=== PATIENT | female | born 1960 | race Caucasian/White ===

== ENCOUNTER 2022-02-02 15:10 | Observation (INO) | payer OTHER, MEDICAID, SELFPAY ==
[2022-02-02] VITALS (25 sets, daily range): BP systolic 113–180; BP diastolic 79–109; PULSE 81–143; RESP 10–23; TEMP 36.3–36.8; O2SAT 91–96; BMI 25.5
--- NOTE | 2022-02-02 15:34 | DI.RAD.S_ITS ---
PROCEDURE: XR CHEST 1V INDICATIONS: chest pain TECHNIQUE: One view of the chest was acquired. COMPARISON: [facility], , CHEST 1 VIEW, 10/31/2016, 17:27. FINDINGS: Surgical changes and devices: None. Lungs and pleura: There is mild pulmonary vascular congestion. No pleural effusions or pneumothorax. Mediastinum: Mediastinal contours appear normal. Heart size is enlarged. Bones and chest wall: No suspicious bony lesions. Overlying soft tissues appear unremarkable. IMPRESSION: Cardiomegaly and mild congestion. No focal infiltrate, pleural effusion or pneumothorax. Dictated by: Jordan Denis M.D. on 02/02/2022 at 16:35 Approved by: Jordan Denis M.D. on 02/02/2022 at 16:35
--- NOTE | 2022-02-02 15:36 | ED_ITS ---
HPI - Arrhythmia/Palpitations General Chief Complaint: Arrhythmia/Palpitations Stated Complaint: Sent from Dr. Chavez Time Seen by Provider: 02/02/22 15:34 History of Present Illness HPI narrative: 61-year-old female daily smoker with history of hypertension, hyperlipidemia and GERD presents at the request of her primary care provider for evaluation newly diagnosed AFib with rapid ventricular response. She had presented to her PCP earlier today because of a few days of increasing shortness of breath, fatigue and chest pain. She states it started 3 days ago and has persistent. She denies obvious provocation, palliation or radiation of her chest discomfort. She states minimal exertion makes her feel short breath. She is had no fever or chills. She denies any change in medications or diet. She denies recent travel, history of blood clot or known cancer. She is had no nausea, vomiting or diarrhea. She denies any history of atrial fibrillation. She had an EKG at the primary care office noting rapid AFib and was sent here for evaluation. Related Data Home Medications Medication Instructions Recorded Confirmed hydrochlorothiazide 25 mg tablet 25 mg PO QDAY ##0 11/23/09 02/02/22 amlodipine 5 mg tablet (Norvasc) 5 mg PO QDAY #0 tabs 01/14/16 02/02/22 aspirin 81 mg tablet,delayed 81 mg PO QDAY ##0 01/14/16 02/02/22 release duloxetine 60 mg capsule,delayed 60 mg PO BID ##0 01/14/16 02/02/22 release fenofibrate nanocrystallized 145 145 mg PO QDAY ##0 01/14/16 02/02/22 mg tablet (Tricor) gabapentin 300 mg capsule 300 mg PO TID ##0 01/14/16 02/02/22 (Neurontin) lorazepam 1 mg tablet (Ativan) PRN PRN ##0 01/14/16 02/02/22 zolpidem 5 mg tablet 5 mg PO HSP PRN ##0 01/14/16 02/02/22 albuterol sulfate 90 mcg/actuation 2 puff inhalation Q4-6H PRN 07/28/21 02/02/22 aerosol inhaler ascorbate calcium (vitamin C) 500 500 mg PO DAILY 07/28/21 02/02/22 mg tablet bupropion HCl 150 mg tablet,12 hr 150 mg PO BID 07/28/21 02/02/22 sustained-release calcium 600 mg capsule 600 mg PO BID 07/28/21 02/02/22 cholecalciferol (vitamin D3) 50 50 mcg PO DAILY 07/28/21 02/02/22 mcg (2,000 unit) capsule estradiol 2 mg tablet (Estrace) 1 mg PO QDAY #0 tabs 07/28/21 02/02/22 Previous Rx's Medication Instructions Recorded meloxicam 7.5 mg tablet 15 mg PO DAILY #180 tabs 09/08/21 omeprazole 20 mg capsule,delayed 20 mg PO DAILY #90 caps 10/29/21 release omega-3 acid ethyl esters 1 gram 2 cap PO BID #120 caps 11/08/21 capsule (Lovaza) hydrocodone 7.5 mg-acetaminophen 2 tab PO Q8H PRN pain #180 tabs 02/02/22 325 mg tablet hydrocodone 7.5 mg-acetaminophen 2 tab PO Q8H PRN pain #180 tabs 02/02/22 325 mg tablet hydrocodone 7.5 mg-acetaminophen 2 tab PO Q8H PRN pain #180 tabs 02/02/22 325 mg tablet Allergies Allergy/AdvReac Type Severity Reaction Status Date / Time atorvastatin [From LIPITOR] Allergy Unknown ACHES Verified 02/02/22 12:39 rosuvastatin [From CRESTOR] Allergy Unknown MUSCLE Verified 02/02/22 12:39 ACHES codeine [CODEINE] AdvReac Unknown Nausea Verified 02/02/22 12:39 Review of Systems Review of Systems Narrative: GENERAL: See HPI HEENT: Denies sinus pain, ear pain, sore throat, difficulty swallowing, dizziness. RESPIRATORY: See HPI CARDIOVASCULAR: See HPI GASTROINTESTINAL: Denies nausea, vomiting, abdominal pain, diarrhea, consti pation, melena. : Denies dysuria, frequency, incontinence, hematuria, urinary retention. MUSCULOSKELETAL: denies weakness, joint pain, or bony pain SKIN: Denies rash, skin lesions, or other NEUROLOGIC: Denies weakness, headache, numbness, change in speech, confusion, seizures, incoordination. PSYCHIATRIC: No concerning psychosocial issues. 12 point review of systems is negative except for those stated above Patient History Medical History Atrial fibrillation with rapid ventricular response BPPV (benign paroxysmal positional vertigo) Chest pain Chronic abdominal pain Chronic, continuous use of opioids Depression, recurrent Essential hypertension GERD without esophagitis Hypertriglyceridemia Venous (peripheral) insufficiency Social History marital status: details: ([facility]) 07/2020, grown children Smoking Status: Current every day smoker Smoking Status: Current every day smoker Exam Narrative Exam Narrative: GENERAL: [61] year old patient appears stated age. Well-developed patient, in mild distress. HEAD: Atraumatic. Normocephalic. EYES: Pupils equal round and reactive. Extraocular motions intact. No scleral icterus. No injection or drainage. ENT: Nose without bleeding, purulent drainage. Throat without erythema, tonsillar hypertrophy or exudate. Airway patent. NECK: Trachea midline. Non tender CARDIOVASCULAR: Rapid and irregular rhythm without murmurs, gallops, or rubs. RESPIRATORY: No significant obvious work of breathing, faint crackles in bilateral bases GASTROINTESTINAL: Abdomen soft, non-tender, nondistended. EXTREMITIES: No edema or joint tenderness. BACK: Nontender without deformity or crepitance. No flank tenderness. NEURO: AOx3. SKIN: No rash or erythema of visible areas Initial Vital Signs Initial Vital Signs: Vital Signs Temperature 98.2 F 02/02/22 15:29 Pulse Rate 143 H 02/02/22 15:29 Respiratory Rate 22 02/02/22 15:29 Blood Pressure 140/109 H 02/02/22 15:29 Pulse Oximetry 94 02/02/22 15:29 Oxygen Delivery Method 02/02/22 15:29 Course Orders Ordered: ED Orders 02/02/22 15:34 XR chest 1V Stat EKG-12 Lead Stat 02/02/22 15:37 Complete Blood Count AUTO DIFF Stat Comprehensive Metabolic Panel Stat D Dimer Stat Lipase Stat MAG [Magnesium] Stat NT-proBNP (BNP-Adult 18+) Stat Prothrombin Time INR Stat TSH w/ Reflex to FT4 Stat Troponin & CK Cardiac Panel Stat 02/02/22 15:57 COVID19 -Nasal RAPID/Pre-Proc Stat DILTIAZEM (Diltiazem 125 Mg/125 Ml-D5w) 125 mg in 125 mls @ 5 mls/hr IV TITRATE TANNER; Protocol Last Titration: 02/02/22 16:08 Dose: 7.5 mg/hr, 7.5 mls/hr Documented By: Admin: 02/02/22 15:51 Dose: 5 mg/hr, 5 mls/hr Documented By: MIGUEL Sodium Chloride (Normal Saline 0.9%) 1,000 mls @ 150 mls/hr IV CONT TANNER Last Admin: 02/02/22 15:48 Dose: 150 mls/hr Documented By: MIGUEL Discontinued Medications Apixaban (Apixaban 5 Mg Tablet) 5 mg PO NOW ONE Stop: 02/02/22 16:53 Diltiazem HCl (Diltiazem 5 Mg/Ml Sdv) 10 mg IV NOW ONE Stop: 02/02/22 15:35 Last Admin: 02/02/22 15:48 Dose: 10 mg Documented By: MIGUEL Furosemide (Furosemide 40 Mg/4 Ml Vial) 40 mg IV NOW ONE Stop: 02/02/22 16:22 Last Admin: 02/02/22 16:49 Dose: 40 mg Metoprolol Tartrate (Metoprolol Ir 25 Mg Tablet) 25 mg PO NOW ONE Stop: 02/02/22 16:53 Vital Signs Vital signs: Vital Signs - 8 hr 02/02/22 15:29 02/02/22 15:48 02/02/22 15:37 Temperature 98.2 F Pulse Rate 143 H 130 H 139 H Respiratory Rate 22 Blood Pressure 140/109 H Pulse Oximetry 94 95 Oxygen Delivery Method Room Air 02/02/22 15:45 02/02/22 15:51 02/02/22 15:51 Temperature Pulse Rate 138 H 133 H Respiratory Rate 10 L 13 Blood Pressure 180/98 H Pulse Oximetry 93 91 Oxygen Delivery Method 02/02/22 16:00 02/02/22 16:00 02/02/22 16:15 Temperature Pulse Rate 136 H 122 H Respiratory Rate 18 18 Blood Pressure 135/94 H Pulse Oximetry 91 92 Oxygen Delivery Method 02/02/22 16:15 02/02/22 16:30 02/02/22 16:30 Temperature Pulse Rate 113 H Respiratory Rate 16 Blood Pressure 134/90 130/88 Pulse Oximetry 92 Oxygen Delivery Method 02/02/22 16:45 02/02/22 16:45 Temperature Pulse Rate 119 H Respiratory Rate 16 Blood Pressure 133/87 Pulse Oximetry 92 Oxygen Delivery Method Room Air MDM - Arrhythmia/Palpitations Lab Data Result diagrams: 02/02/22 15:37 02/02/22 15:37 Labs: Lab Results 02/02/22 02/02/22 02/02/22 Range/Units 15:37 15:37 15:37 WBC 6.3 (4.5-11.0) X10^3/uL RBC 5.67 H (4.0-5.2) X10^6/uL Hgb 17.9 H (12.0-16.0) g/dL Hct 52.9 H (36-46) % MCV 93.3 (80-100) fL MCH 31.5 (26-34) PG MCHC 33.8 (30-36) % RDW 16.0 H (11.6-14.8) % Plt Count 168 (150-400) X10^3/uL Neut % (Auto) 60.6 (50-75) % Lymph % (Auto) 29.6 (25-40) % Sullivan % (Auto) 6.3 (3-14) % Eos % (Auto) 3.1 (2-4) % Baso % (Auto) 0.4 (0-2) % Neut # (Auto) 3800 (1725-4228) /uL Lymph # (Auto) 1900 (8392-7909) /uL Sullivan # (Auto) 400 (0-900) /uL Eos # (Auto) 200 (0-450) /uL Baso # (Auto) 0 (0-100) /uL PT 13.3 H (10.1-12.7) SECONDS INR 1.2 (0.9-1.3) D-Dimer 473 (<500) ng/ml Sodium 140 (137-145) mmol/L Potassium 3.6 (3.4-5.1) mmol/L Chloride 102 (98-107) mmol/L Carbon Dioxide 25 (22-32) mmol/L BUN 33 H (7-17) mg/dL Creatinine 1.05 H (0.52-1.04) mg/dL Estimated GFR > 60 (>60) mL/min BUN/Creatinine Ratio 31.4 H (6-22) Glucose 96 (80-110) mg/dL Calcium 9.8 (8.4-10.2) mg/dL Magnesium 1.7 (1.6-2.3) mg/dL Total Bilirubin 0.9 (0.2-1.3) mg/dL AST 30 (14-36) IU/L ALT 24 (<35) IU/L Alkaline Phosphatase 62 (38-126) U/L Total Creatine Kinase 41 (30-135) U/L CK-MB (CK-2) TNP CK-MB (CK-2) Rel Index TNP Troponin I < 0.012 (0.01-0.034) ng/mL NT-Pro-B Natriuret Pep 2790 H (<125) pg/mL Total Protein 8.5 H (6.3-8.2) g/dL Albumin 4.3 (3.5-5.0) g/dL Globulin 4.2 H (1.7-4.1) g/dL Albumin/Globulin Ratio 1.0 (1.0-2.8) Lipase 62 (23-300) U/L Imaging Data Chest x-ray: Radiologist's Impresson: Sun Appiah??61??F??1960 ? Allergy/Adv: atorvastatin, rosuvastatin, codeine (More??) Close EKG Rpt. 02/02/22 Chest X-Ray (Signed) Jordan Denis - 02/02/22 Launch?[place] [address] XRay Report Signed Patient: Sun Appiah MR#: [id number] : 1960 Acct:[id number] Age/Sex: 61 / F Date of Service: 02/02/22 Loc: ED Accession Number: [id number] ?? Procedure: XR chest 1V Ordering Provider: Enmanuel Wilcox D.O. PROCEDURE:? XR CHEST 1V ? INDICATIONS:? chest pain ? TECHNIQUE:? One view of the chest was acquired.? ? COMPARISON:? [facility], CHEST 1 VIEW, 10/31/2016, 17:27. ? FINDINGS:? ? Surgical changes and devices:? None.? ? Lungs and pleura:? There is mild pulmonary vascular congestion.? No pleural effusions or pneumothorax.? ? Mediastinum:? Mediastinal contours appear normal.? Heart size is enlarged.? ? Bones and chest wall:? No suspicious bony lesions.? Overlying soft tissues appear unremarkable.? ? IMPRESSION:? Cardiomegaly and mild congestion.? No focal infiltrate, pleural effusion or pneumothorax. ? ? Dictated by: Jordan Denis M.D. on 02/02/2022 at 16:35 ? ? Approved by: Jordan Denis M.D. on 02/02/2022 at 16:35 ? MDM Narrative Medical decision making narrative: Patient did have some improvement after the push of Cardizem, drip started at 5 and then slowly increased, she is responding and heart rate is now 105-110. She does have some crackles in her bases and elevated BNP as well as chest x-ray suggesting some pulmonary edema, she has been given Lasix 40 mg IV. Discharge Plan Departure Patient Disposition: Admitted As Inpatient Clinical Impression: Atrial fibrillation with rapid ventricular response Admit Date/Time: 02/02/22 16:52
[2022-02-02] MEDS: SODIUM CHLORIDE 0.9% 1,000 ML 150 ML IV (15:48)
[2022-02-02] MEDS: dilTIAZem 5 MG/ML SDV 10 MG IV (15:48)
[2022-02-02] MEDS: DILTIAZEM 125 MG/125 ML PIGGYBACK IV ×2 (15:51→18:17)
[2022-02-02 15:53] LABS: Add Manual Diff / Slide Review NO; Basophils Absolute Auto 0 /uL (0-100); Basophils Percent Auto 0.4 % (0-2); Eosinophils Absolute Auto 200 /uL (0-450); Eosinophils Percent Auto 3.1 % (2-4); Hematocrit 52.9 % (36-46); Hemoglobin 17.9 g/dL (12.0-16.0); Lymphocytes Absolute Auto 1900 /uL (1100-4500); Lymphocytes Percent Auto 29.6 % (25-40); Mean Corpuscular HGB Conc 33.8 % (30-36); Mean Corpuscular Hemoglobin 31.5 PG (26-34); Mean Corpuscular Volume 93.3 fL (80-100); Monocytes Absolute Auto 400 /uL (0-900); Monocytes Percent Auto 6.3 % (3-14); Neutrophils Absolute Auto 3800 /uL (1500-7000); Neutrophils Percent Auto 60.6 % (50-75); Platelet Count 168 X10^3/uL (150-400); Red Blood Cell Count 5.67 X10^6/uL (4.0-5.2); White Blood Cell Count 6.3 X10^3/uL (4.5-11.0)
[2022-02-02 15:59] LABS: INR 1.2 (0.9-1.3); Prothrombin Time 13.3 SECONDS (10.1-12.7)
[2022-02-02 16:01] LABS: D Dimer 473 ng/ml (<500)
[2022-02-02 16:05] LABS: Alanine Aminotransferase 24 IU/L (<35); Albumin 4.3 g/dL (3.5-5.0); Alkaline Phosphatase 62 U/L (38-126); Aspartate Aminotransferase 30 IU/L (14-36); BUN Creatinine Ratio 31.4 (6-22); Bilirubin Total 0.9 mg/dL (0.2-1.3); Blood Urea Nitrogen 33 mg/dL (7-17); Calcium 9.8 mg/dL (8.4-10.2); Carbon Dioxide 25 mmol/L (22-32); Chloride 102 mmol/L (98-107); Creatine Kinase 41 U/L (30-135); Estimated Glomerular Filt Rate > 60 mL/min (>60); Globulin 4.2 g/dL (1.7-4.1); Glucose 96 mg/dL (80-110); HEMOLYSIS < 15 (0-50); Lipase 62 U/L (23-300); Magnesium 1.7 mg/dL (1.6-2.3); Potassium 3.6 mmol/L (3.4-5.1); Sodium 140 mmol/L (137-145); Total Protein 8.5 g/dL (6.3-8.2)
[2022-02-02 16:17] LABS: NT-proBNP (BNP-Adult 18+) 2790 pg/mL (<125); Troponin I < 0.012 ng/mL (0.01-0.034)
[2022-02-02] MEDS: FUROSEMIDE 40 MG/4 ML VIAL IV (16:49)
[2022-02-02 16:54] LABS: COVID19 -Nasal RAPID Negative (Negative)
[2022-02-02 16:56] LABS: TSH w/ Reflex to FT4 1.73 uIU/mL (0.47-4.68)
[2022-02-02] MEDS: METOPROLOL IR 25 MG TABLET PO (16:57)
[2022-02-02] MEDS: APIXABAN 5 MG TABLET PO ×2 (16:57→20:55)
--- NOTE | 2022-02-02 18:03 | DI.ECHO.S_ITS ---
[facility]---------+ [facility] +---------+ : : [address] : : : : [id number] : : : : Phone: [phone]+ Echocardiogram Report + + :Name: KEYLA PFEIFFER Study Date: 02/03/2022 Height: 63 in : :[facility] ReadingLocation: Weight: 149 lb : : Gender: Female BSA: 1.7 m2 : :: 1960 Age: 61 yrs BP: 133/91 mmHg: :Reason For Study: ATRIAL FIBRILLATION : :Ordering Physician: THIEN, : :AISLINN KATE Performed By: Marichuy Garcia : :Referring: AISLINN NEUMANN : + + Interpretation Summary The patient was in atrial fibrillation with heart rates between 77-110 bpm during the exam. Left ventricular ejection fraction is estimated to be 35 +/- 5%. Accurate LVEF quantificantion is limited by abnormal rate and rhythm. Right ventricular systolic function is at the lower limits of normal. The right ventricular systolic pressure is estimated to be at least 40 mmHg based on an estimated right atrial pressure of 15 mm Hg. The left atrium is severely dilated. The right atrium is severely dilated. There is moderate mitral regurgitation. There is moderate tricuspid regurgitation. There is moderate aortic regurgitation. Procedure: A two-dimensional transthoracic echocardiogram with color flow and Doppler was performed. The study quality was technically adequate. There is no prior echocardiogram noted for this patient. The patient was in atrial fibrillation with heart rates between 77-110 bpm during the exam. Left Ventricle: The left ventricle is normal in size. There is moderate concentric left ventricular hypertrophy. Left ventricular ejection fraction is estimated to be 35 +/- 5%. Accurate LVEF quantificantion is limited by abnormal rate and rhythm. Diastolic function could not be accurately assessed due to atrial fibrillation. Right Ventricle: The right ventricle is normal size. Right ventricular systolic function is at the lower limits of normal. Atria: The left atrium is severely dilated. The right atrium is severely dilated. There is no Doppler evidence for an interatrial shunt. Mitral Valve: There is moderate mitral annular calcification. The mitral valve leaflets are mildly calcified. The mitral valve mean gradient is 3.8 mmHg. There is moderate mitral regurgitation. Aortic Valve: The aortic valve is trileaflet. There is no aortic valve stenosis. There is moderate aortic regurgitation. Tricuspid Valve: The tricuspid valve leaflets are thin and pliable. There is moderate tricuspid regurgitation. The right ventricular systolic pressure is estimated to be at least 40 mmHg based on an estimated right atrial pressure of 15 mm Hg. Pulmonic Valve: The pulmonic valve leaflets are thin and pliable; valve motion is normal. There is trace pulmonic regurgitation. Great Vessels: The aortic root is normal size. The ascending aorta is mildly enlarged. The IVC is dilated (diameter is greater than 2.1 cm) and it collapses less than 50% with a sniff. This suggests a high right atrial pressure of 15 mm Hg. Pericardium/ Pleura There is no pericardial effusion. There is no pleural effusion. MMode/2D Measurements & Calculations LVIDd: 4.1 cm LVOT diam: 2.0 cm LVIDs: 3.1 cm Ao root diam: 3.7 cm FS: 24.8 % asc Aorta Diam: 3.9 cm IVSd: 1.4 cm Ao Arch Diam (Prox Trans): 2.6 cm LVPWd: 1.4 cm LV gillette. diameter/BSA (cm/m^2): 2.4 LV sys. diameter/BSA (cm/m^2): 1.8 LA A2 area: 43.3 cm2 RA long axis: 7.6 cm LA A4 area: 31.8 cm2 RA area: 27.9 cm2 LA length (vol): 7.6 cm RA vol: 87.3 ml LA vol: 153.2 ml RA : 51.2 ml/m2 LA vol index: 89.8 ml/m2 IVC diam: 2.0 cm RVD1 (basal): 3.2 cm RVD2 (mid): 2.2 cm TAPSE: 1.5 cm Doppler Measurements & Calculations Ao V2 max: 123.1 cm/sec LVOT Max Ruel: 73.9 cm/sec Ao V2 mean: 87.3 cm/sec LV V1 max P.2 mmHg Ao max P.1 mmHg LV V1 VTI: 12.2 cm Ao mean P.4 mmHg IGGY(I,D): 1.9 cm2 Ao V2 VTI: 19.3 cm IGGY(V,D): 1.8 cm2 sev ratio: 0.63 IGGY indexed to BSA (cm^2/m^2): 1.1 MV E max ruel: 149.5 cm/sec TR max ruel: 247.9 cm/sec MV A max ruel: 3.0 cm/sec TR max P.6 mmHg MV E/A: 49.4 PA V2 max: 65.9 cm/sec Med Peak E' Ruel: 5.9 cm/sec PA V2 mean: 45.1 cm/sec E/E' med: 25.2 PA mean P.92 mmHg Lat Peak E' Ruel: 6.9 cm/sec E/E' lat: 21.7 E/e' average: 23.5 MV dec time: 0.19 sec MVA(VTI): 1.3 cm2 MV V2 mean: 86.8 cm/sec SV(LVOT): 37.2 ml MV mean P.9 mmHg MV V2 VTI: 29.4 cm Reading Physician:ROMEL
--- NOTE | 2022-02-02 18:27 | P.HP_ITS ---
History of Present Illness History of Present Illness Date Patient Seen: 02/02/22 Time Patient Seen: 18:27 Chief complaint: Sent from Dr. Chavez Narrative: This is a 61-year-old female with a past medical history of hypertension, GERD, chronic abdominal pain, tobacco use who presented to her PCP appointment for follow up but was sent to the ER for afib with RVR. She complains of chronic bilateral lateral skeletal wall pain, underneath her breasts that radiates to her back. It is worse with touch. She states this has been present for quite some time. She has noticed intermittent palpitations over the past few months, as well as intermittent leg swelling and shortness of breath. She has noticed occasionally she gets short of breath when walking at her home for a few hundred feet, which improves with rest, but is intermittent and has not changed in frequency recently. She denies recent fever, chills, nausea, vomiting, diarrhea, constipation, rash, dysuria or urinary frequency. In the emergency room, patient was noted to be in afib with RVR with a rate in the 140s. The remainder of her vital signs were unremarkable. She responded to IV diltiazem and was placed on an infusion. Chest x-ray showed mild cardiomegaly and mild vascular congestion consistent with volume overload with no focal consolidations, as interpreted by me. Laboratory evaluation revealed an elevated hemoglobin of 17.9, creatinine of 1.05 increased from her usual baseline of 0.7, proBNP of 2790, with a negative troponin, TSH was within normal limits and COVID-19 testing was negative. Patient was sent to the ICU on a diltiazem infusion. I asked the ER provider to give a single dose of 25 mg of immediate release metoprolol, which will help with titration off of her dilt iazem infusion. She was also given a dose of Lasix. Patient History Medical History Atrial fibrillation with rapid ventricular response BPPV (benign paroxysmal positional vertigo) Chest pain Chronic abdominal pain Chronic, continuous use of opioids Depression, recurrent Essential hypertension GERD without esophagitis Hypertriglyceridemia Venous (peripheral) insufficiency Surgical History S/P hernia surgery Family & Social History Family History Father Diabetes mellitus CAD (coronary artery disease) Mother Cancer Safety & Behavioral: Feels Safe in Current Yes Environment Been Physically Hurt or No Threatened By a Person Tobacco & Substance use: Smoking Status Current every day smoker Comment: EtOH: occasional Illicit substances: Denies Meds Home Medications and Allergies Home Medications Medication Instructions Recorded Confirmed Type hydrochlorothiazide 25 mg tablet 25 mg PO QDAY ##0 11/23/09 02/02/22 History amlodipine 5 mg tablet (Norvasc) 5 mg PO QDAY #0 tabs 01/14/16 02/02/22 History aspirin 81 mg tablet,delayed 81 mg PO QDAY ##0 01/14/16 02/02/22 History release duloxetine 60 mg capsule,delayed 60 mg PO BID ##0 01/14/16 02/02/22 History release fenofibrate nanocrystallized 145 145 mg PO QDAY ##0 01/14/16 02/02/22 History mg tablet (Tricor) gabapentin 300 mg capsule 300 mg PO TID ##0 01/14/16 02/02/22 History (Neurontin) lorazepam 1 mg tablet (Ativan) PRN PRN ##0 01/14/16 02/02/22 History zolpidem 5 mg tablet 5 mg PO HSP PRN ##0 01/14/16 02/02/22 History albuterol sulfate 90 mcg/actuation 2 puff inhalation Q4-6H PRN 07/28/21 02/02/22 History aerosol inhaler Shortness Of Breath Or Wheezing ascorbate calcium (vitamin C) 500 500 mg PO DAILY 07/28/21 02/02/22 History mg tablet bupropion HCl 150 mg tablet,12 hr 150 mg PO BID 07/28/21 02/02/22 History sustained-release calcium 600 mg capsule 600 mg PO BID 07/28/21 02/02/22 History cholecalciferol (vitamin D3) 50 50 mcg PO DAILY 07/28/21 02/02/22 History mcg (2,000 unit) capsule estradiol 2 mg tablet (Estrace) 1 mg PO QDAY #0 tabs 07/28/21 02/02/22 History meloxicam 7.5 mg tablet 15 mg PO DAILY #180 tabs 09/08/21 02/02/22 Rx omeprazole 20 mg capsule,delayed 20 mg PO DAILY #90 caps 10/29/21 02/02/22 Rx release omega-3 acid ethyl esters 1 gram 2 cap PO BID #120 caps 11/08/21 02/02/22 Rx capsule (Lovaza) hydrocodone 7.5 mg-acetaminophen 2 tab PO Q8H PRN pain #180 tabs 02/02/22 02/02/22 Rx 325 mg tablet Allergies Allergy/AdvReac Type Severity Reaction Status Date / Time atorvastatin [From LIPITOR] Allergy Unknown ACHES Verified 02/02/22 12:39 rosuvastatin [From CRESTOR] Allergy Unknown MUSCLE Verified 02/02/22 12:39 ACHES codeine [CODEINE] AdvReac Unknown Nausea Verified 02/02/22 12:39 Review of Systems Review of Systems Narrative: All other systems reviewed with the patient and are negative unless otherwise stated. Exam Vital Signs (past 8 hours): - 02/02/22 15:29 02/02/22 15:48 02/02/22 15:37 Temperature 98.2 F Pulse Rate 143 H 130 H 139 H Respiratory Rate 22 Blood Pressure 140/109 H Pulse Oximetry 94 95 Oxygen Delivery Method Room Air 02/02/22 15:45 02/02/22 15:51 02/02/22 15:51 Temperature Pulse Rate 138 H 133 H Respiratory Rate 10 L 13 Blood Pressure 180/98 H Pulse Oximetry 93 91 Oxygen Delivery Method 02/02/22 16:00 02/02/22 16:00 02/02/22 16:15 Temperature Pulse Rate 136 H 122 H Respiratory Rate 18 18 Blood Pressure 135/94 H Pulse Oximetry 91 92 Oxygen Delivery Method 02/02/22 16:15 02/02/22 16:30 02/02/22 16:30 Temperature Pulse Rate 113 H Respiratory Rate 16 Blood Pressure 134/90 130/88 Pulse Oximetry 92 Oxygen Delivery Method 02/02/22 16:45 02/02/22 16:45 02/02/22 17:00 Temperature Pulse Rate 119 H Respiratory Rate 16 Blood Pressure 133/87 129/84 Pulse Oximetry 92 Oxygen Delivery Method Room Air 02/02/22 17:00 02/02/22 17:15 02/02/22 17:15 Temperature Pulse Rate 114 H 107 H Respiratory Rate 16 16 Blood Pressure 127/79 Pulse Oximetry 91 91 Oxygen Delivery Method 02/02/22 17:30 02/02/22 17:30 02/02/22 16:54 Temperature Pulse Rate 118 H Respiratory Rate 23 Blood Pressure 113/86 Pulse Oximetry 91 Oxygen Delivery Method Room Air Oxygen Delivery Method Room Air Narrative Exam Narrative: General:? Patient is well developed and well nourished, in no distress at this time. HEENT:? Normocephalic, atraumatic, extraocular muscles intact, oral pharynx is clear and mucous membranes are moist. Neck: supple and symmetric, trachea is midline, no cervical adenopathy. Negative for JVD Chest:? Normal AP diameter and contour without kyphoscoliosis, no tachypnea, equal chest rise bilaterally. Lungs:? CTA b/l no wheezing rhonchi or rales. Cardio:? Irregularly irregular rhythm with a normal rate, no murmurs, rubs, or gallops. Abdomen: S NT ND. No CVA tenderness. Musculoskeletal:? Muscle strength and tone are equal within normal limits, no deformity. Extremities: No edema or joint effusions. No cyanosis or clubbing. Skin:? Pale,? Warm to touch,dry and intact without rashes, ulcerations or petechiae.? Neuro:? Alert and orientated x3,? sensation to touch intact in all extremities, no gross deficits noted of cranial nerves. Psych:? Patient has a well-kept appearance, appropriate affect, mental status attitude thought context and judgment are appropriate for age. Objective ECG Impression: Atrial fibrillation with rapid ventricular response, with an incomplete right bundle tony block as interpreted by me. Imaging Chest x-ray: My impression: cardiomegaly with slight vascular congestion. Radiologist's impression: PROCEDURE:? XR CHEST 1V ? INDICATIONS:? chest pain ? TECHNIQUE:? One view of the chest was acquired.? ? COMPARISON:? [facility], , CHEST 1 VIEW, 10/31/2016, 17:27. ? FINDINGS:? ? Surgical changes and devices:? None.? ? Lungs and pleura:? There is mild pulmonary vascular congestion.? No pleural effusions or pneumothorax.? ? Mediastinum:? Mediastinal contours appear normal.? Heart size is enlarged.? ? Bones and chest wall:? No suspicious bony lesions.? Overlying soft tissues appear unremarkable.? ? IMPRESSION:? Cardiomegaly and mild congestion.? No focal infiltrate, pleural effusion or pneumothorax. Labs Result Diagrams: 02/02/22 15:37 02/02/22 15:37 Labs: Laboratory Results - last 24 hr 02/02/22 02/02/22 02/02/22 15:37 15:37 15:37 WBC 6.3 RBC 5.67 H Hgb 17.9 H Hct 52.9 H MCV 93.3 MCH 31.5 MCHC 33.8 RDW 16.0 H Plt Count 168 Neut % (Auto) 60.6 Lymph % (Auto) 29.6 [place] % (Auto) 6.3 Eos % (Auto) 3.1 Baso % (Auto) 0.4 Neut # (Auto) 3800 Lymph # (Auto) 1900 [place] # (Auto) 400 Eos # (Auto) 200 Baso # (Auto) 0 PT 13.3 H INR 1.2 D-Dimer 473 Sodium 140 Potassium 3.6 Chloride 102 Carbon Dioxide 25 BUN 33 H Creatinine 1.05 H Estimated GFR > 60 BUN/Creatinine Ratio 31.4 H Glucose 96 Calcium 9.8 Magnesium 1.7 Total Bilirubin 0.9 AST 30 ALT 24 Alkaline Phosphatase 62 Total Creatine Kinase 41 CK-MB (CK-2) TNP CK-MB (CK-2) Rel Index TNP Troponin I < 0.012 NT-Pro-B Natriuret Pep 2790 H Total Protein 8.5 H Albumin 4.3 Globulin 4.2 H Albumin/Globulin Ratio 1.0 Lipase 62 TSH SARS-CoV-2 (PCR) 02/02/22 02/02/22 15:37 15:57 WBC RBC Hgb Hct MCV MCH MCHC RDW Plt Count Neut % (Auto) Lymph % (Auto) [place] % (Auto) Eos % (Auto) Baso % (Auto) Neut # (Auto) Lymph # (Auto) [place] # (Auto) Eos # (Auto) Baso # (Auto) PT INR D-Dimer Sodium Potassium Chloride Carbon Dioxide BUN Creatinine Estimated GFR BUN/Creatinine Ratio Glucose Calcium Magnesium Total Bilirubin AST ALT Alkaline Phosphatase Total Creatine Kinase CK-MB (CK-2) CK-MB (CK-2) Rel Index Troponin I NT-Pro-B Natriuret Pep Total Protein Albumin Globulin Albumin/Globulin Ratio Lipase TSH 1.73 SARS-CoV-2 (PCR) Negative Assessment & Plan Assessment & Plan narrative: 1. Atrial fibrillation with rapid ventricular response, new diagnosis - try to wean from diltiazem infusion. - r/o ACS with 8 hour troponin, initial level was undetectable. - check echocardiogram - start metoprolol 25 mg BID for rate control, adjust as needed. - start apixaban for stroke risk reduction - TSH within normal limits. 2. Acute heart failure, unknown type - suspect in the setting of afib with RVR, but has cardiomegaly and congestion on CXR with elevated proBNP. - no hypoxia and mild shortness of breath currently, though improved with 40 mg IV lasix in the ER. Will continue with oral lasix 40 mg daily tomorrow. - TTE as noted above. 3. Tobacco use - counseled on cessation and how her smoking is contributing to her current medical conditions. She has no interest in cessation at this time but would like a nicotine patch during admission. 4. JUANITA - likely in setting of afib with RVR. Continue to follow. 5. Polycythemia - Hg of 17.9 on admission. Likely in setting of tobacco use and relative hypoxia. Would recommend additional outpatient evaluation including PFTs and s leep study. 6. Chronic abdominal pain - continue home opiate pain medications I have utilized all available immediate resources to obtain, update, or review the patient's current medications. Code: Full, surrogate decision maker is the patient's sons Dispo: observation in ICU on diltiazem infusion, likely discharge home in 1-2 days depending on rate control and respiratory symptoms / echo findings. DVT: started on AC with eliquis COVID-19 COVID-19 status: Negative Time Spent With Patient Critical Care time: I spent a total of [] minutes of critical care time on this patient's care today; this time is exclusive of procedural time. Quality MIPS - Admit I confirm the patient?s Advance Care Plan is present, Code status is documented, Surrogate decision maker is in patient?s record [If Yes, STOP here]: Yes
[2022-02-02] MEDS: NICOTINE 21 MG PATCH TOP (18:50)
[2022-02-02] MEDS: buPROPion SR 150 MG TAB PO (20:55)
[2022-02-02] MEDS: DULOXETINE 30 MG CAPSULE 60 MG PO (20:55)
[2022-02-02] MEDS: GABAPENTIN 300 MG CAPSULE PO (20:55)
[2022-02-02] MEDS: METOPROLOL ER 25 MG TABLET PO (20:55)
[2022-02-02] MEDS: HYDROCODONE/ACET 5/325 TABLET 2 TAB PO (21:41)
[2022-02-02 23:59] LABS: Troponin I < 0.012 ng/mL (0.01-0.034)
[2022-02-03] VITALS (23 sets, daily range): BP systolic 122–149; BP diastolic 75–116; PULSE 85–110; RESP 11–28; TEMP 36.4–36.5; O2SAT 92–99
[2022-02-03] MEDS: LORazepam 0.5 MG TABLET PO (00:04)
[2022-02-03] MEDS: PANTOPRAZOLE DR 40 MG TABLET PO (06:40)
[2022-02-03] MEDS: APIXABAN 5 MG TABLET PO (08:48)
[2022-02-03] MEDS: METOPROLOL ER 25 MG TABLET PO (08:48)
[2022-02-03] MEDS: FUROSEMIDE 40 MG TABLET PO (08:49)
[2022-02-03] MEDS: DULOXETINE 30 MG CAPSULE 60 MG PO (08:50)
[2022-02-03] MEDS: GABAPENTIN 300 MG CAPSULE PO (08:50)
[2022-02-03] MEDS: FENOFIBRATE, MICRONIZED 67 MG CAPSULE 134 MG PO (08:50)
[2022-02-03] MEDS: buPROPion SR 150 MG TAB PO (08:51)
[2022-02-03] MEDS: NICOTINE 21 MG PATCH TOP (08:53)
[2022-02-03] MEDS: HYDROCODONE/ACET 5/325 TABLET 2 TAB PO (09:00)
[2022-02-03 09:10] LABS: Add Manual Diff / Slide Review NO; Basophils Absolute Auto 0 /uL (0-100); Basophils Percent Auto 0.7 % (0-2); Eosinophils Absolute Auto 100 /uL (0-450); Eosinophils Percent Auto 2.1 % (2-4); Hemoglobin 17.6 g/dL (12.0-16.0); Lymphocytes Absolute Auto 1600 /uL (1100-4500); Lymphocytes Percent Auto 25.1 % (25-40); Mean Corpuscular HGB Conc 33.9 % (30-36); Mean Corpuscular Hemoglobin 31.4 PG (26-34); Mean Corpuscular Volume 92.6 fL (80-100); Monocytes Absolute Auto 300 /uL (0-900); Monocytes Percent Auto 5.2 % (3-14); Neutrophils Absolute Auto 4200 /uL (1500-7000); Neutrophils Percent Auto 66.9 % (50-75); Platelet Count 175 X10^3/uL (150-400); Red Blood Cell Count 5.61 X10^6/uL (4.0-5.2); Red Cell Distribution Width 16.1 % (11.6-14.8); White Blood Cell Count 6.3 X10^3/uL (4.5-11.0)
[2022-02-03 09:19] LABS: Alanine Aminotransferase 20 IU/L (<35); Alkaline Phosphatase 52 U/L (38-126); Aspartate Aminotransferase 24 IU/L (14-36); Bilirubin Total 0.8 mg/dL (0.2-1.3); Blood Urea Nitrogen 40 mg/dL (7-17); Calcium 9.3 mg/dL (8.4-10.2); Carbon Dioxide 31 mmol/L (22-32); Chloride 99 mmol/L (98-107); Estimated Glomerular Filt Rate 57 mL/min (>60); Globulin 3.9 g/dL (1.7-4.1); Glucose 103 mg/dL (80-110); HEMOLYSIS < 15 (0-50); Magnesium 1.7 mg/dL (1.6-2.3); Potassium 3.5 mmol/L (3.4-5.1); Sodium 141 mmol/L (137-145); Total Protein 7.9 g/dL (6.3-8.2)
--- NOTE | 2022-02-03 09:23 | P.TELICUCN_ITS ---
History of Present Illness Consult details IF CAMERA ACTIVATED, patient seen via real-time interactive audiovisual communication: Camera activated Date Patient Seen: 02/03/22 Chief complaint: Sent from Dr. Chavez Reason for consult: A fib Requesting provider: Lito Skaggs Consent obtained for tele-supervisor graphite care: Yes Patient Location: ICU Provider location (State): [place] Other participants/roles: RN Narrative: Patient is a 61 year old female with history of hypertension who was sent from her PCP office after she was found to be in A fib w/ RVR. On admission she reports having palpitations and occassional SOB. She was found to be in A fib w/ RVR and started on diltiazem infusion. Admitted to ICU for further management. In ICU, she was started on metoprolol and eliquis. She was weaned off of diltiazem infusion with current HR ~90s. Subjectively patient reports no complaints. Denies chest pain, N/V, fever/ch ills, or abdominal pain. TTE completed pending read. [facility] Medical History Atrial fibrillation with rapid ventricular response BPPV (benign paroxysmal positional vertigo) Chest pain Chronic abdominal pain Chronic, continuous use of opioids Depression, recurrent Essential hypertension GERD without esophagitis Hypertriglyceridemia Venous (peripheral) insufficiency Surgical History S/P hernia surgery Family History Father Diabetes mellitus CAD (coronary artery disease) Mother Cancer Social History marital status: details: (Heath) 07/2020, grown children household members: none Smoking Status: Current every day smoker Current Medications Current Medications Medications: Home Medications hydrochlorothiazide 25 mg tablet 25 mg PO QDAY ##0 11/23/09 [History Confirmed 02/02/22] amlodipine 5 mg tablet (Norvasc) 5 mg PO QDAY #0 tabs 01/14/16 [History Confirmed 02/02/22] aspirin 81 mg tablet,delayed release 81 mg PO QDAY ##0 01/14/16 [History Confirmed 02/02/22] duloxetine 60 mg capsule,delayed release 60 mg PO BID ##0 10/13/16 [History Confirmed 02/02/22] fenofibrate nanocrystallized 145 mg tablet (Tricor) 145 mg PO QDAY ##0 01/14/16 [History Confirmed 02/02/22] gabapentin 300 mg capsule (Neurontin) 300 mg PO TID ##0 01/14/16 [History Confirmed 02/02/22] lorazepam 1 mg tablet (Ativan) 1 mg PO PRN PRN Anxiety ##0 01/14/16 [History Confirmed 02/02/22] zolpidem 5 mg tablet 5 mg PO HSP PRN Insomnia ##0 01/14/16 [History Confirmed 02/02/22] albuterol sulfate 90 mcg/actuation aerosol inhaler 2 puff inhalation Q4-6H PRN Shortness Of Breath Or Wheezing 07/28/21 [History Confirmed 02/02/22] ascorbate calcium (vitamin C) 500 mg tablet 500 mg PO DAILY 07/28/21 [History Confirmed 02/02/22] bupropion HCl 150 mg tablet,12 hr sustained-release 150 mg PO BID 07/28/21 [History Confirmed 02/02/22] calcium 600 mg capsule 600 mg PO BID 07/28/21 [History Confirmed 02/02/22] cholecalciferol (vitamin D3) 50 mcg (2,000 unit) capsule 50 mcg PO DAILY 07/28/21 [History Confirmed 02/02/22] estradiol 2 mg tablet (Estrace) 1 mg PO QDAY #0 tabs 07/28/21 [History Confirmed 02/02/22] meloxicam 7.5 mg tablet 15 mg PO DAILY #180 tabs 09/08/21 [Rx Confirmed 02/02/22] omeprazole 20 mg capsule,delayed release 20 mg PO DAILY #90 caps 10/29/21 [Rx Confirmed 02/02/22] omega-3 acid ethyl esters 1 gram capsule (Lovaza) 2 cap PO BID #120 caps 11/08/21 [Rx Confirmed 02/02/22] hydrocodone 7.5 mg-acetaminophen 325 mg tablet 2 tab PO Q8H PRN pain #180 tabs 02/02/22 [Rx Confirmed 02/02/22] Visit Medications (administered) Generic Name Dose Route Start Last Admin Trade Name Freq PRN Reason Stop Dose Admin Hydrocodone Bitart/Acetaminophen 2 tab 02/02/22 18:01 02/03/22 09:00 Hydrocodone/Acet 5/325 Tablet PO 2 tab Q4H PRN Administration Pain, Severe (7-10) Apixaban 5 mg 02/02/22 21:00 02/03/22 08:48 Apixaban 5 Mg Tablet PO 5 mg BID TANNER Administration Bupropion HCl 150 mg 02/02/22 21:00 02/03/22 08:51 Bupropion Sr 150 Mg Tab PO 150 mg BID TANNER Administration Duloxetine HCl 60 mg 02/02/22 21:00 02/03/22 08:50 Duloxetine 30 Mg Capsule PO 60 mg BID TANNER Administration Fenofibrate 134 mg 02/03/22 09:00 02/03/22 08:50 Fenofibrate, Micronized 67 Mg Capsule PO 134 mg DAILY TANNER Administration Furosemide 40 mg 02/03/22 09:00 02/03/22 08:49 Furosemide 40 Mg Tablet PO 40 mg DAILY TANNER Administration Gabapentin 300 mg 02/02/22 21:00 02/03/22 08:50 Gabapentin 300 Mg Capsule PO 300 mg TID TANNER Administration Lorazepam 0.5 mg 02/02/22 18:40 02/03/22 00:04 Lorazepam 0.5 Mg Tablet PO 0.5 mg Q6HR PRN Administration Anxiety Metoprolol Succinate 25 mg 02/02/22 21:00 02/03/22 08:48 Metoprolol Er 25 Mg Tablet PO 25 mg BID TANNER Administration Nicotine 21 mg 02/02/22 18:30 02/03/22 08:53 Nicotine 21 Mg Patch TOP 21 mg DAILY TANNER Administration Pantoprazole Sodium 40 mg 02/03/22 07:00 02/03/22 06:[address] 40 Mg Tablet PO 40 mg 0700 TANNER Administration Exam Vital Signs (past 8 hours): - 02/03/22 02:00 02/03/22 02:00 02/03/22 03:00 Temperature Pulse Rate 95 H Respiratory Rate 16 Blood Pressure 132/84 138/88 Pulse Oximetry 93 Oxygen Delivery Method Oxygen Flow Rate 2 02/03/22 03:00 02/03/22 04:00 02/03/22 04:00 Temperature Pulse Rate 85 104 H Respiratory Rate 14 15 Blood Pressure 134/102 H Pulse Oximetry 96 97 Oxygen Delivery Method Oxygen Flow Rate 02/03/22 04:06 02/03/22 04:06 02/03/22 05:00 Temperature 97.6 F Pulse Rate 97 H Respiratory Rate 15 Blood Pressure 136/93 H 147/103 H Pulse Oximetry 94 Oxygen Delivery Method Oxygen Flow Rate 02/03/22 05:00 02/03/22 05:03 02/03/22 05:03 Temperature Pulse Rate 103 H 103 H Respiratory Rate 17 11 L Blood Pressure 149/96 H Pulse Oximetry 95 95 Oxygen Delivery Method Oxygen Flow Rate 02/03/22 06:00 02/03/22 06:00 02/03/22 06:01 Temperature Pulse Rate 96 H 103 H Respiratory Rate Blood Pressure 148/111 H Pulse Oximetry 96 96 Oxygen Delivery Method Oxygen Flow Rate 02/03/22 06:01 02/03/22 06:03 02/03/22 06:03 Temperature Pulse Rate 110 H Respiratory Rate Blood Pressure 149/116 H 149/104 H Pulse Oximetry 97 Oxygen Delivery Method Oxygen Flow Rate 02/03/22 06:40 02/03/22 06:40 02/03/22 07:00 Temperature Pulse Rate 94 H Respiratory Rate Blood Pressure 129/90 133/91 H Pulse Oximetry 97 Oxygen Delivery Method Oxygen Flow Rate 02/03/22 07:00 02/03/22 08:48 02/03/22 08:15 Temperature Pulse Rate 97 H 100 H Respiratory Rate 16 Blood Pressure 136/89 Pulse Oximetry 97 97 Oxygen Delivery Method Nasal Cannula Oxygen Flow Rate 2 02/03/22 09:15 Temperature Pulse Rate Respiratory Rate Blood Pressure Pulse Oximetry 95 Oxygen Delivery Method Room Air Oxygen Flow Rate 0 Oxygen Delivery Method Room Air Oxygen Flow Rate 0 Narrative Exam Narrative: Awake, not in acute distress Objective Labs Result Diagrams: 02/03/22 08:35 02/03/22 08:35 Labs: Laboratory Results - last 24 hr 02/02/22 02/02/22 02/02/22 15:37 15:37 15:37 WBC 6.3 RBC 5.67 H Hgb 17.9 H Hct 52.9 H MCV 93.3 MCH 31.5 MCHC 33.8 RDW 16.0 H Plt Count 168 Neut % (Auto) 60.6 Lymph % (Auto) 29.6 [place] % (Auto) 6.3 Eos % (Auto) 3.1 Baso % (Auto) 0.4 Neut # (Auto) 3800 Lymph # (Auto) 1900 [place] # (Auto) 400 Eos # (Auto) 200 Baso # (Auto) 0 PT 13.3 H INR 1.2 D-Dimer 473 Sodium 140 Potassium 3.6 Chloride 102 Carbon Dioxide 25 BUN 33 H Creatinine 1.05 H Estimated GFR > 60 BUN/Creatinine Ratio 31.4 H Glucose 96 Calcium 9.8 Magnesium 1.7 Total Bilirubin 0.9 AST 30 ALT 24 Alkaline Phosphatase 62 Total Creatine Kinase 41 CK-MB (CK-2) TNP CK-MB (CK-2) Rel Index TNP Troponin I < 0.012 NT-Pro-B Natriuret Pep 2790 H Total Protein 8.5 H Albumin 4.3 Globulin 4.2 H Albumin/Globulin Ratio 1.0 Lipase 62 TSH SARS-CoV-2 (PCR) 02/02/22 02/02/22 02/02/22 15:37 15:57 23:29 WBC RBC Hgb Hct MCV MCH MCHC RDW Plt Count Neut % (Auto) Lymph % (Auto) [place] % (Auto) Eos % (Auto) Baso % (Auto) Neut # (Auto) Lymph # (Auto) [place] # (Auto) Eos # (Auto) Baso # (Auto) PT INR D-Dimer Sodium Potassium Chloride Carbon Dioxide BUN Creatinine Estimated GFR BUN/Creatinine Ratio Glucose Calcium Magnesium Total Bilirubin AST ALT Alkaline Phosphatase Total Creatine Kinase CK-MB (CK-2) CK-MB (CK-2) Rel Index Troponin I < 0.012 NT-Pro-B Natriuret Pep Total Protein Albumin Globulin Albumin/Globulin Ratio Lipase TSH 1.73 SARS-CoV-2 (PCR) Negative 02/03/22 02/03/22 08:35 08:35 WBC 6.3 RBC 5.61 H Hgb 17.6 H Hct 52.0 H MCV 92.6 MCH 31.4 MCHC 33.9 RDW 16.1 H Plt Count 175 Neut % (Auto) 66.9 Lymph % (Auto) 25.1 [place] % (Auto) 5.2 Eos % (Auto) 2.1 Baso % (Auto) 0.7 Neut # (Auto) 4200 Lymph # (Auto) 1600 [place] # (Auto) 300 Eos # (Auto) 100 Baso # (Auto) 0 PT INR D-Dimer Sodium 141 Potassium 3.5 Chloride 99 Carbon Dioxide 31 BUN 40 H Creatinine 1.11 H Estimated GFR 57 L BUN/Creatinine Ratio 36.0 H Glucose 103 Calcium 9.3 Magnesium 1.7 Total Bilirubin 0.8 AST 24 ALT 20 Alkaline Phosphatase 52 Total Creatine Kinase CK-MB (CK-2) CK-MB (CK-2) Rel Index Troponin I NT-Pro-B Natriuret Pep Total Protein 7.9 Albumin 4.0 Globulin 3.9 Albumin/Globulin Ratio 1.0 Lipase TSH SARS-CoV-2 (PCR) Assessment & Plan Assessment & Plan narrative: NEURO: -- Seek PT/OT and OOB as tolerated RESP: -- On room air -- Encourage IS and OOB as tolerated CVS: # A fib w/ RVR -- Currently rate controlled w/ HR ~90s -- Cont metoprolol and eliquis -- High lytes goal # Concern for pulmonary edema -- Pending TTE -- Agree with lasix 40 mg PO daily -- High lytes goal # HTN -- Cont metoprolol -- Goal SBP < 140 : # JUANITA vs CKD -- Cont diuresis -- Daily BMP -- Avoid nephrotoxin agents -- Monitor UOP ENDO: -- GOal BS < 180 D/w RN and patient at bedside. Time Spent With Patient Time with patient: less than 30 minutes
--- NOTE | 2022-02-03 09:28 | CM.DANOTE ---
DCP Assessment: Payor confirmed: [employer] PCP confirmed: Elías Chavez MD Pt is a 61 y.o. F who presented to the ED because her doctor sent her here. Pt was experiencing SOB, fatigue, and chest pain. Pt admitted as inpatient for afib with RVR management and evaluation. DCP met with pt this morning to discuss discharge needs. Pt laying down in bed. DCP introduced herself and role. Pt states she lives alone in a single story house in [place]. Pt states her son, Jeremías, lives close by in [place]. Pt states she is independent at baseline and still drives POV. No DME use. Pt states that she is hoping she can drive herself home since she drove herself here. If she cannot, Jeremías will have to pick her up. Pt denies any resources at this time. Pt inquiring about when she will be discharged. DCP verbalized that she did not know but if she finds any information, she would let pt know. Pt verbalized understanding. White board updated and instructed to call. Pt thankful for discussion. P: Once pt is medically stable for discharge, pt to discharge home via POV. Yvonne Lu RN/ISAIAS Discharge Planning/Care Management CM Discharge Assessment Start: 02/03/22 09:27 Freq: Status: Active Protocol: Document 02/03/22 09:27 ERIK (Rec: 02/03/22 09:28 ERIK [id number]) Discharge Planning Assessment Assigned Phytopathologist Yvonne Lu RN/ISAIAS Advance Directives? No History Provided By Patient Prior Living Arrangements House Household Members none Type of transporation used prior to Drives own vehicle admit Independent with ADL's Yes Is patient alert and oriented? Yes Caregiver for Another No Discharge Plan Home Transportation Arrangement POV Referrals Initiated None needed Additional Comment At this time. Whiteboard Updated in Patient Room with Yes name and ext. # of Phytopathologist Comment Instructed to call Review Status In Process Please Provide Date Initial DC 02/03/22 Assessment Was Performed Next Review Type Continued Stay Review
--- NOTE | 2022-02-03 10:19 | P.DS_ITS ---
History of Present Illness History of Present Illness Date Patient Seen: 02/03/22 Chief complaint: Sent from Dr. Chavez Narrative: This is a 61-year-old female with a past medical history of hypertension, GERD, chronic abdominal pain, tobacco use who presented to her PCP appointment for fo llow up but was sent to the ER for afib with RVR. She complains of chronic bilateral lateral skeletal wall pain, underneath her breasts that radiates to her back. It is worse with touch. She states this has been present for quite some time. She has noticed intermittent palpitations over the past few months, as well as intermittent leg swelling and shortness of breath. She has noticed occasionally she gets short of breath when walking at her home for a few hundred feet, which improves with rest, but is intermittent and has not changed in frequency recently. She denies recent fever, chills, nausea, vomiting, diarrhea, constipation, rash, dysuria or urinary frequency. In the emergency room, patient was noted to be in afib with RVR with a rate in the 140s. The remainder of her vital signs were unremarkable. She responded to IV diltiazem and was placed on an infusion. Chest x-ray showed mild cardiomegaly and mild vascular congestion consistent with volume overload with no focal consolidations, as interpreted by me. Laboratory evaluation revealed an elevated hemoglobin of 17.9, creatinine of 1.05 increased from her usual baseline of 0.7, proBNP of 2790, with a negative troponin, TSH was within normal limits and COVID-19 testing was negative. Patient was sent to the ICU on a dilt iazem infusion. I asked the ER provider to give a single dose of 25 mg of immediate release metoprolol, which will help with titration off of her diltiazem infusion. She was also given a dose of Lasix. Discharge Providers Provider Date of admission: 02/02/22 16:52 Discharge Date: 02/03/22 Primary care physician: Elías Chavez MD Discharge provider: Lito Skaggs DO Summary Hospital Course Discharge Diagnosis: 1. Atrial fibrillation with rapid ventricular response, new diagnosis 2. Acute heart failure, diastolic 3. Tobacco use 4. JUANITA 5. Polycythemia 6. Chronic abdominal pain, stable Hospital Course: This is a 61 year old female with PMH of HTN, tobacco use admitted with new diagnosis of atrial fibrillation with RVR. She was quickly rate controlled with oral metoprolol. Troponins were negative and ACS was ruled out. Echocardiogram was unremarkable with a normal EF. She had mild volume overload and diastolic heart failure from her rapid rate and improved with a small amount of furosemide. Her creatinine did jump slightly so on discharge she can resume her previous HCTZ rather than initiating furosemide. She was counseled on smoking cessation but was not interested in resources at this time. She was also started on apixaban for stroke prevention given elevated CHADS-VASC score. For her polycythemia I would recommend outpatient evaluation with PFTs or a sleep study at this time. No other changes to her home medications are recommended at this time. Exam Vital Signs (past 8 hours): - 02/03/22 03:00 02/03/22 03:00 02/03/22 04:00 Temperature Pulse Rate 85 Respiratory Rate 14 Blood Pressure 138/88 134/102 H Pulse Oximetry 96 Oxygen Delivery Method Oxygen Flow Rate 02/03/22 04:00 02/03/22 04:06 02/03/22 04:06 Temperature 97.6 F Pulse Rate 104 H 97 H Respiratory Rate 15 15 Blood Pressure 136/93 H Pulse Oximetry 97 94 Oxygen Delivery Method Oxygen Flow Rate 02/03/22 05:00 02/03/22 05:00 02/03/22 05:03 Temperature Pulse Rate 103 H 103 H Respiratory Rate 17 11 L Blood Pressure 147/103 H Pulse Oximetry 95 95 Oxygen Delivery Method Oxygen Flow Rate 02/03/22 05:03 02/03/22 06:00 02/03/22 06:00 Temperature Pulse Rate 96 H Respiratory Rate Blood Pressure 149/96 H 148/111 H Pulse Oximetry 96 Oxygen Delivery Method Oxygen Flow Rate 02/03/22 06:01 02/03/22 06:01 02/03/22 06:03 Temperature Pulse Rate 103 H Respiratory Rate Blood Pressure 149/116 H 149/104 H Pulse Oximetry 96 Oxygen Delivery Method Oxygen Flow Rate 02/03/22 06:03 02/03/22 06:40 02/03/22 06:40 Temperature Pulse Rate 110 H 94 H Respiratory Rate Blood Pressure 129/90 Pulse Oximetry 97 97 Oxygen Delivery Method Oxygen Flow Rate 02/03/22 07:00 02/03/22 07:00 02/03/22 08:48 Temperature Pulse Rate 97 H 100 H Respiratory Rate 16 Blood Pressure 133/91 H 136/89 Pulse Oximetry 97 Oxygen Delivery Method Oxygen Flow Rate 02/03/22 08:15 02/03/22 09:15 02/03/22 09:28 Temperature Pulse Rate 98 H Respiratory Rate Blood Pressure 122/93 H Pulse Oximetry 97 95 Oxygen Delivery Method Nasal Cannula Room Air Oxygen Flow Rate 2 0 02/03/22 07:00 Temperature Pulse Rate Respiratory Rate Blood Pressure Pulse Oximetry Oxygen Delivery Method Room Air Oxygen Flow Rate Oxygen Delivery Method Room Air Oxygen Flow Rate 0 Narrative Exam Narrative: General:? Patient is well developed and well nourished, in no distress at this time. HEENT:? Normocephalic, atraumatic, extraocular muscles intact, oral pharynx is clear and mucous membranes are moist. Neck: supple and symmetric, trachea is midline, no cervical adenopathy. Negative for JVD Chest:? Normal AP diameter and contour without kyphoscoliosis, no tachypnea, equal chest rise bilaterally. Lungs:? CTA b/l no wheezing rhonchi or rales. Cardio:? Irregularly irregular rhythm with a normal rate, no murmurs, rubs, or gallops. Abdomen: S NT ND. No CVA tenderness. Musculoskeletal:? Muscle strength and tone are equal within normal limits, no deformity. Extremities: No edema or joint effusions. No cyanosis or clubbing. Skin:? Pale,? Warm to touch,dry and intact without rashes, ulcerations or petechiae.? Neuro:? Alert and orientated x3,? sensation to touch intact in all extremities, no gross deficits noted of cranial nerves. Psych:? Patient has a well-kept appearance, appropriate affect, mental status attitude thought context and judgment are appropriate for age. Objective Labs Result Diagrams: 02/03/22 08:35 02/03/22 08:35 Labs: Laboratory Results - last 24 hr 02/02/22 02/02/22 02/02/22 15:37 15:37 15:37 WBC 6.3 RBC 5.67 H Hgb 17.9 H Hct 52.9 H MCV 93.3 MCH 31.5 MCHC 33.8 RDW 16.0 H Plt Count 168 Neut % (Auto) 60.6 Lymph % (Auto) 29.6 [place] % (Auto) 6.3 Eos % (Auto) 3.1 Baso % (Auto) 0.4 Neut # (Auto) 3800 Lymph # (Auto) 1900 [place] # (Auto) 400 Eos # (Auto) 200 Baso # (Auto) 0 PT 13.3 H INR 1.2 D-Dimer 473 Sodium 140 Potassium 3.6 Chloride 102 Carbon Dioxide 25 BUN 33 H Creatinine 1.05 H Estimated GFR > 60 BUN/Creatinine Ratio 31.4 H Glucose 96 Calcium 9.8 Magnesium 1.7 Total Bilirubin 0.9 AST 30 ALT 24 Alkaline Phosphatase 62 Total Creatine Kinase 41 CK-MB (CK-2) TNP CK-MB (CK-2) Rel Index TNP Troponin I < 0.012 NT-Pro-B Natriuret Pep 2790 H Total Protein 8.5 H Albumin 4.3 Globulin 4.2 H Albumin/Globulin Ratio 1.0 Lipase 62 TSH SARS-CoV-2 (PCR) 02/02/22 02/02/22 02/02/22 15:37 15:57 23:29 WBC RBC Hgb Hct MCV MCH MCHC RDW Plt Count Neut % (Auto) Lymph % (Auto) [place] % (Auto) Eos % (Auto) Baso % (Auto) Neut # (Auto) Lymph # (Auto) [place] # (Auto) Eos # (Auto) Baso # (Auto) PT INR D-Dimer Sodium Potassium Chloride Carbon Dioxide BUN Creatinine Estimated GFR BUN/Creatinine Ratio Glucose Calcium Magnesium Total Bilirubin AST ALT Alkaline Phosphatase Total Creatine Kinase CK-MB (CK-2) CK-MB (CK-2) Rel Index Troponin I < 0.012 NT-Pro-B Natriuret Pep Total Protein Albumin Globulin Albumin/Globulin Ratio Lipase TSH 1.73 SARS-CoV-2 (PCR) Negative 02/03/22 02/03/22 08:35 08:35 WBC 6.3 RBC 5.61 H Hgb 17.6 H Hct 52.0 H MCV 92.6 MCH 31.4 MCHC 33.9 RDW 16.1 H Plt Count 175 Neut % (Auto) 66.9 Lymph % (Auto) 25.1 [place] % (Auto) 5.2 Eos % (Auto) 2.1 Baso % (Auto) 0.7 Neut # (Auto) 4200 Lymph # (Auto) 1600 [place] # (Auto) 300 Eos # (Auto) 100 Baso # (Auto) 0 PT INR D-Dimer Sodium 141 Potassium 3.5 Chloride 99 Carbon Dioxide 31 BUN 40 H Creatinine 1.11 H Estimated GFR 57 L BUN/Creatinine Ratio 36.0 H Glucose 103 Calcium 9.3 Magnesium 1.7 Total Bilirubin 0.8 AST 24 ALT 20 Alkaline Phosphatase 52 Total Creatine Kinase CK-MB (CK-2) CK-MB (CK-2) Rel Index Troponin I NT-Pro-B Natriuret Pep Total Protein 7.9 Albumin 4.0 Globulin 3.9 Albumin/Globulin Ratio 1.0 Lipase TSH SARS-CoV-2 (PCR) PFSH Medical History Atrial fibrillation with rapid ventricular response BPPV (benign paroxysmal positional vertigo) Chest pain Chronic abdominal pain Chronic, continuous use of opioids Depression, recurrent Essential hypertension GERD without esophagitis Hypertriglyceridemia Venous (peripheral) insufficiency Surgical History S/P hernia surgery Family History Father Diabetes mellitus CAD (coronary artery disease) Mother Cancer Social History marital status: details: ([place]ath) 07/2020, grown children household members: none Smoking Status: Current every day smoker Discharge Plan Discharge Plan Patient Disposition: Home Provider Discharge Comment: You were admitted to the hospital with new diagnosis of atrial fibrillation with a very fast rate. This was able to be slowed down with oral medications. Please follow up with Dr. Chavez's office next week. A blood thinner medication was sent to reduce your stroke risk. If you at some point wish to stop smoking, please visit the [facility] quitline for additional resources to help. It is also important to stop meloxicam or any other NSAID like ibuprofen or naproxen, as this combined with the blood thinner can increase your risk of stomach bleeding. Discharge orders & Medications Prescriptions: New apixaban 5 mg tablet 5 mg PO BID 30 Days Qty: 60 0RF metoprolol succinate 25 mg Tablet Extended Release 24 Hr 25 mg PO BID 30 Days Qty: 60 0RF Continued hydrochlorothiazide 25 MG tablet 25 mg PO QDAY Qty: 0 zolpidem 5 MG tablet 5 mg PO HSP PRN (Reason: Insomnia) Qty: 0 duloxetine 60 MG capsule,delayed release(DR/EC) 60 mg PO BID Qty: 0 fenofibrate nanocrystallized [Tricor] 145 MG tablet 145 mg PO QDAY Qty: 0 gabapentin [Neurontin] 300 MG capsule 300 mg PO TID Qty: 0 lorazepam [Ativan] 1 MG tablet 1 mg PO PRN PRN (Reason: Anxiety) Qty: 0 estradiol [Estrace] 2 mg tablet 1 mg PO QDAY Qty: 0 omeprazole 20 mg capsule,delayed release(DR/EC) 20 mg PO DAILY Qty: 90 3RF omega-3 acid ethyl esters [Lovaza] 1 gram capsule 2 cap PO BID Qty: 120 3RF albuterol sulfate 90 mcg/actuation HFA aerosol inhaler 2 puff inhalation Q4-6H PRN (Reason: Shortness Of Breath Or Wheezing) calcium 600 mg capsule 600 mg PO BID bupropion HCl 150 mg tablet sustained-release 12 hr 150 mg PO BID cholecalciferol (vitamin D3) 50 mcg (2,000 unit) capsule 50 mcg PO DAILY ascorbate calcium (vitamin C) 500 mg tablet 500 mg PO DAILY hydrocodone-acetaminophen 7.5-325 mg tablet 2 tab PO Q8H PRN (Reason: pain) Qty: 180 0RF Discontinued amlodipine [Norvasc] 5 MG tablet 5 mg PO QDAY Qty: 0 aspirin 81 MG tablet,delayed release (DR/EC) 81 mg PO QDAY Qty: 0 meloxicam 7.5 mg tablet 15 mg PO DAILY Qty: 180 3RF Rx Instructions: This replaced the script that was quantity of 90. Follow up/Referrals: Elías Chavez MD [Primary Care Provider] - 02/09/22 9:30 am (appt:02/09 @ 9:[address] Chavez-please arrive 15 minutes prior to your scheduledd appointment time appt is regarding-New afib with RVR) Diet/Activity/Treatments Diet: Diet as Tolerated Activity: As tolerated Visit Report/Discharge Packet Instructions: Atrial Fibrillation, DI for Atrial Fibrillation Discharge Data Primary Care Provider: Elías Chavez V Attending Provider: Lito Skaggs VTE Deep Vein Thrombosis/Pulmonary Embolism Present on Admission: No
[2022-02-03 14:07] LABS: pH VBG 7.41 (7.33-7.43)
[2022-02-03 14:08] LABS: HCO3 VBG 33 mmol/L (23-28); PCO2 VBG 53.2 mmHg (45-50); PO2 VBG 30 mmHg (35-45)
[2022-02-03 14:10] LABS: Total CO2 VBG 35 mmol/L (24-29)
[2022-02-03 14:11] LABS: Oxygen Saturation VBG 57 % (70-75)
== END 2022-02-03 11:00 | disposition home or self-care (01) ==
LOC: ED 15:38 → AC 16:53 → ICU 02-03 09:49
PROVIDERS: Nurse Practitioner Family; Admitting Provider Internal Medicine; Emergency Provider Emergency Medicine; PCP Internal Medicine; Referring Provider Emergency Medicine; Visit Provider Internal Medicine
DX: I48.91 Unspecified atrial fibrillation (principal); I11.0 Hypertensive heart disease with heart failure; E78.5 Hyperlipidemia, unspecified; F17.210 Nicotine dependence, cigarettes, uncomplicated; I50.9 Heart failure, unspecified; N17.9 Acute kidney failure, unspecified; D75.1 Secondary polycythemia; R10.9 Unspecified abdominal pain; Z20.822 Contact with and (suspected) exposure to COVID-19
CPT/HCPCS: 36415; 71045; 80053; 82550; 82805; 83690; 83735; 83880; 84443; 84484; 85025; 85379; 85610; 87635; 93005; 93306; 94762; 96365; 96366; 96375; 99284; C9803; G0378; J1940

== ENCOUNTER → 2022-02-17 15:26 | Outpatient (CLI) | payer OTHER, MEDICAID, SELFPAY ==
[2022-02-02 18:41] VITALS: BMI 25.5
[2022-02-17 16:59] LABS: Hematocrit 49.9 % (36-46); Hemoglobin 17.1 g/dL (12.0-16.0); Mean Corpuscular HGB Conc 34.2 % (30-36); Mean Corpuscular Hemoglobin 31.6 PG (26-34); Mean Corpuscular Volume 92.2 fL (80-100); Platelet Count 190 X10^3/uL (150-400); Red Blood Cell Count 5.41 X10^6/uL (4.0-5.2); Red Cell Distribution Width 15.4 % (11.6-14.8); White Blood Cell Count 7.8 X10^3/uL (4.5-11.0)
[2022-02-17 17:13] LABS: Blood Urea Nitrogen 35 mg/dL (7-17); Calcium 9.5 mg/dL (8.4-10.2); Carbon Dioxide 31 mmol/L (22-32); Chloride 97 mmol/L (98-107); Estimated Glomerular Filt Rate 49 mL/min (>60); Glucose 101 mg/dL (80-110); HEMOLYSIS < 15 (0-50); Potassium 3.6 mmol/L (3.4-5.1); Sodium 138 mmol/L (137-145)
[2022-02-17 17:31] LABS: Digoxin < 0.4 ng/mL (0.8-2.0)
== END ==
PROVIDERS: PCP Internal Medicine; Referring Provider Internal Medicine; Visit Provider Internal Medicine
DX: I48.91 Unspecified atrial fibrillation (principal); I50.22 Chronic systolic (congestive) heart failure
CPT/HCPCS: 36415; 80048; 80162; 85027

== ENCOUNTER → 2022-03-08 11:03 | Outpatient (CLI) | payer OTHER, MEDICAID, SELFPAY ==
[2022-02-02 18:41] VITALS: BMI 25.5
--- NOTE | 2022-03-08 11:03 | DI.RAD.S_ITS ---
PROCEDURE: FL UPPER GI SERIES INDICATIONS: dysphagia COMPARISON: None. FINDINGS: KUB: Preprocedural hockey scout film demonstrates a normal bowel gas pattern. No suspicious abdominal calcifications. Visualized solid organ contours appear normal. Bony structures appear unremarkable. Esophagus: Esophageal mucosa is normal on air-contrast views. On single-contrast views, there is normal esophageal peristalsis. Mild narrowing of the distal esophagus.. No hiatal hernia or elicited gastroesophageal reflux. There is slight delay at the gastroesophageal junction of a calibrated barium tablet through the esophagus. Stomach: The stomach is normally distensible, with normal rugal fold thickness. No mucosal masses or ulcers. Pylorus and duodenal bulb appear normal in morphology. Duodenal folds are normal in thickness as well. IMPRESSION: 1. Mild narrowing of the distal esophagus. 2. Otherwise negative upper GI examination. Dictated by: Magen Lam M.D. on 03/08/2022 at 14:39 Transcribed by: DARLYN on 03/08/2022 at 14:40 Approved by: Magen Lam M.D. on 03/08/2022 at 16:05
== END ==
PROVIDERS: PCP Internal Medicine; Referring Provider Internal Medicine; Visit Provider Internal Medicine
DX: R13.10 Dysphagia, unspecified (principal); K22.2 Esophageal obstruction
CPT/HCPCS: 74240

== ENCOUNTER → 2022-10-13 12:38 | Outpatient (CLI) | payer MEDICARE, MEDICAID, SELFPAY ==
[2022-02-02 18:41] VITALS: BMI 25.5
[2022-10-13 13:43] LABS: Hematocrit 43.3 % (36-46); Hemoglobin 14.2 g/dL (12.0-16.0); Mean Corpuscular HGB Conc 32.8 % (30-36); Mean Corpuscular Hemoglobin 26.8 PG (26-34); Mean Corpuscular Volume 81.8 fL (80-100); Platelet Count 200 X10^3/uL (150-400); Red Blood Cell Count 5.29 X10^6/uL (4.0-5.2); Red Cell Distribution Width 24.6 % (11.6-14.8); White Blood Cell Count 5.7 X10^3/uL (4.5-11.0)
[2022-10-13 15:00] LABS: Alanine Aminotransferase 20 IU/L (<35); Albumin 4.2 g/dL (3.5-5.0); Albumin Globulin Ratio 1.1 (1.0-2.8); Alkaline Phosphatase 47 U/L (38-126); Aspartate Aminotransferase 47 IU/L (14-36); BUN Creatinine Ratio 20.5 (6-22); Bilirubin Total 0.6 mg/dL (0.2-1.3); Blood Urea Nitrogen 25 mg/dL (7-17); Calcium 9.1 mg/dL (8.4-10.2); Carbon Dioxide 30 mmol/L (22-32); Chloride 104 mmol/L (98-107); Cholesterol 163 mg/dL (140-199); Estimated Glomerular Filt Rate 50 mL/min (>60); Globulin 3.9 g/dL (1.7-4.1); Glucose 90 mg/dL (80-110); HDL Cholesterol 25 mg/dL (40-60); HEMOLYSIS < 15 (0-50); LDL Cholesterol Calculated 97 mg/dL (<100); Potassium 3.7 mmol/L (3.4-5.1); Sodium 141 mmol/L (137-145); Total Protein 8.1 g/dL (6.3-8.2); Triglycerides 204 mg/dL (35-150)
[2022-10-13 15:29] LABS: TSH w/ Reflex to FT4 0.16 uIU/mL (0.47-4.68)
[2022-10-13 15:53] LABS: Free T4, Direct Thyroxine 1.19 ng/dL (0.78-2.19)
== END ==
PROVIDERS: PCP Internal Medicine; Referring Provider Internal Medicine; Visit Provider Internal Medicine
DX: I48.91 Unspecified atrial fibrillation (principal); I50.22 Chronic systolic (congestive) heart failure; Z79.01 Long term (current) use of anticoagulants
CPT/HCPCS: 36415; 80053; 80061; 84439; 84443; 85027

== ENCOUNTER → 2023-07-27 12:36 | Outpatient (CLI) | payer OTHER, SELFPAY ==
[2022-02-02 18:41] VITALS: BMI 25.5
[2023-07-27 12:56] LABS: Hematocrit 46.8 % (36-46); Hemoglobin 15.4 g/dL (12.0-16.0); Mean Corpuscular HGB Conc 32.9 % (30-36); Mean Corpuscular Hemoglobin 30.8 PG (26-34); Mean Corpuscular Volume 93.7 fL (80-100); Platelet Count 180 X10^3/uL (150-400); Red Cell Distribution Width 16.8 % (11.6-14.8); White Blood Cell Count 6.3 X10^3/uL (4.5-11.0)
[2023-07-27 13:25] LABS: Alanine Aminotransferase 18 IU/L (<35); Albumin 4.3 g/dL (3.5-5.0); Albumin Globulin Ratio 1.3 (1.0-2.8); Alkaline Phosphatase 76 U/L (38-126); Aspartate Aminotransferase 28 IU/L (14-36); BUN Creatinine Ratio 20.7 (6-22); Bilirubin Total 0.6 mg/dL (0.2-1.3); Blood Urea Nitrogen 19 mg/dL (7-17); Calcium 9.3 mg/dL (8.4-10.2); Carbon Dioxide 30 mmol/L (22-32); Chloride 106 mmol/L (98-107); Estimated Glomerular Filt Rate > 60 mL/min (>60); Globulin 3.3 g/dL (1.7-4.1); Glucose 103 mg/dL (80-110); HEMOLYSIS < 15 (0-50); Potassium 4.7 mmol/L (3.4-5.1); Sodium 141 mmol/L (137-145); Total Protein 7.6 g/dL (6.3-8.2)
[2023-07-27 15:46] LABS: TSH w/ Reflex to FT4 1.98 uIU/mL (0.47-4.68)
== END ==
LOC: LAB 12:37
PROVIDERS: PCP Internal Medicine; Referring Provider Internal Medicine; Visit Provider Internal Medicine
DX: I11.0 Hypertensive heart disease with heart failure (principal); I50.22 Chronic systolic (congestive) heart failure; R10.9 Unspecified abdominal pain; G89.29 Other chronic pain; K80.10 Calculus of gallbladder with chronic cholecystitis without obstruction
CPT/HCPCS: 36415; 80053; 84443; 85027

== ENCOUNTER → 2023-08-11 13:27 | Outpatient (CLI) | payer OTHER, SELFPAY ==
[2022-02-02 18:41] VITALS: BMI 25.5
--- NOTE | 2023-08-11 13:28 | DI.CT.S_ITS ---
PROCEDURE: CT LUNG LOW DOSE SCREENING INDICATIONS: chronic tobacco use TECHNIQUE: Noncontrast 2.0-2.5 mm thick sections acquired from the pulmonary apices to the posterior costophrenic angles. 7 mm thick axial MIP, and 5 mm coronal and sagittal reformats were then acquired. For radiation dose reduction, the following was used: automated exposure control, adjustment of mA and/or kV according to patient size. COMPARISON: [facility], CT, CT ANGIO CHEST ABDOMEN PELVIS, 04/18/2023, 12:45. [facility], CT, PE STUDY (CTA CHEST), 10/31/2016, 20:10. FINDINGS: Image quality: Diagnostic. Lower Neck: No enlarged lymph nodes. Thyroid: No thyroid nodules which require sonographic follow up, per consensus guidelines. Axillae: No enlarged lymph nodes. Chest Wall: Unremarkable. Bones: Unremarkable. Lungs and Pleura: No pneumothorax or pleural effusions. Stable solid pulmonary micro nodules in the left lung base (series 3, image 239 and 233). Mild centrilobular ground-glass in the right upper lobe, slightly increased since 04/18/2023. Heart: Heart size is markedly enlarged. No pericardial effusion. Thoracic Vessels: Mild aneurysmal dilation of the ascending aorta, measuring 4 cm, previously 3.9 cm in 2017 . Known aortic dissection not well appreciated in the absence of intravenous contrast. Mediastinum and [place]: No enlarged lymph nodes. Esophagus: No wall thickening. No hiatal hernia. Upper Abdomen: Visualized upper abdomen solid organs and bowel loops appear normal. IMPRESSION: No suspicious pulmonary nodules. LUNG-RADS 2; continued annual screening, if eligible. Clinically Significant Non-pulmonary Findings: None. Known aortic dissection not well appreciated on this noncontrast exam. Slightly progressing centrilobular ground-glass nodules in the right upper lobe, suggestive of an infectious/inflammatory bronchiolitis. Stable aneurysmal dilation of the ascending aorta. Attention on follow-up. Dictated by: Hector Deleon M.D. on 08/11/2023 at 14:18 Approved by: Hector Deleon M.D. on 08/11/2023 at 14:54
== END ==
PROVIDERS: PCP Internal Medicine; Referring Provider Internal Medicine; Visit Provider Internal Medicine
DX: Z12.2 Encounter for screening for malignant neoplasm of respiratory organs (principal); F17.210 Nicotine dependence, cigarettes, uncomplicated; R91.8 Other nonspecific abnormal finding of lung field; I71.40 Abdominal aortic aneurysm, without rupture, unspecified; I51.7 Cardiomegaly
CPT/HCPCS: 71271

== ENCOUNTER → 2024-05-07 16:01 | Outpatient (CLI) | payer MEDICARE, SELFPAY ==
[2022-02-02 18:41] VITALS: BMI 25.5
--- NOTE | 2024-05-07 16:03 | DI.RAD.S_ITS ---
PROCEDURE: XR CHEST 2V INDICATIONS: copd TECHNIQUE: 2 views of the chest were acquired. COMPARISON: [facility], CR, XR CHEST 1V, 02/02/2022, 16:10. FINDINGS: Surgical changes and devices: None. Lungs and pleura: Small patchy right lower lobe infiltrate appreciated. Mediastinum: Moderate cardiomegaly unchanged. Pacemaker leads in satisfactory position. The remaining mediastinum and pulmonary vessels are normal Bones and chest wall: No suspicious bony abnormalities. Soft tissues appear unremarkable. IMPRESSION: Small posterior right lower lobe infiltrate. Dictated by: Nirav Zhang M.D. on 05/08/2024 at 11:45 Approved by: Nirav Zhang M.D. on 05/08/2024 at 11:46
[2024-05-07 16:55] LABS: Hematocrit 37.3 % (36-46); Hemoglobin 11.7 g/dL (12.0-16.0); Mean Corpuscular HGB Conc 31.5 % (30-36); Mean Corpuscular Hemoglobin 25.9 PG (26-34); Mean Corpuscular Volume 82.4 fL (80-100); Platelet Count 247 X10^3/uL (150-400); Red Blood Cell Count 4.52 X10^6/uL (4.0-5.2); Red Cell Distribution Width 18.6 % (11.6-14.8)
[2024-05-07 17:22] LABS: Alanine Aminotransferase 10 IU/L (<35); Albumin 4.2 g/dL (3.5-5.0); Albumin Globulin Ratio 1.2 (1.0-2.8); Alkaline Phosphatase 45 U/L (38-126); Aspartate Aminotransferase 24 IU/L (14-36); BUN Creatinine Ratio 19.4 (6-22); Bilirubin Total 0.6 mg/dL (0.2-1.3); Blood Urea Nitrogen 32 mg/dL (7-17); Calcium 9.6 mg/dL (8.4-10.2); Carbon Dioxide 23 mmol/L (22-32); Chloride 106 mmol/L (98-107); Cholesterol 149 mg/dL (140-199); Estimated Glomerular Filt Rate 35 mL/min (>60); Globulin 3.6 g/dL (1.7-4.1); Glucose 96 mg/dL (80-110); HDL Cholesterol 26 mg/dL (40-60); HEMOLYSIS < 15 (0-50); LDL Cholesterol Calculated 78 mg/dL (<100); Sodium 138 mmol/L (137-145); Total Protein 7.8 g/dL (6.3-8.2); Triglycerides 225 mg/dL (35-150)
== END ==
PROVIDERS: PCP Internal Medicine; Referring Provider Internal Medicine; Visit Provider Internal Medicine
DX: J44.9 Chronic obstructive pulmonary disease, unspecified (principal); R91.8 Other nonspecific abnormal finding of lung field; I48.91 Unspecified atrial fibrillation; E78.1 Pure hyperglyceridemia; I51.7 Cardiomegaly
CPT/HCPCS: 36415; 71046; 80053; 80061; 85027

== ENCOUNTER → 2024-05-29 15:04 | Outpatient (CLI) | payer MEDICARE, SELFPAY ==
[2022-02-02 18:41] VITALS: BMI 25.5
[2024-05-29 16:28] LABS: Blood Urea Nitrogen 17 mg/dL (7-17); Calcium 9.3 mg/dL (8.4-10.2); Carbon Dioxide 26 mmol/L (22-32); Chloride 102 mmol/L (98-107); Estimated Glomerular Filt Rate 55 mL/min (>60); Glucose 111 mg/dL (80-110); HEMOLYSIS < 15 (0-50); Potassium 4.3 mmol/L (3.4-5.1); Sodium 137 mmol/L (137-145)
== END ==
PROVIDERS: PCP Internal Medicine; Referring Provider Internal Medicine; Visit Provider Internal Medicine
DX: I11.0 Hypertensive heart disease with heart failure (principal); I50.22 Chronic systolic (congestive) heart failure; R79.89 Other specified abnormal findings of blood chemistry
CPT/HCPCS: 36415; 80048

== ENCOUNTER → 2024-06-12 11:18 | Outpatient (CLI) | payer MEDICARE, SELFPAY ==
[2022-02-02 18:41] VITALS: BMI 25.5
== END ==
LOC: RESP 11:18
PROVIDERS: PCP Internal Medicine; Referring Provider Internal Medicine; Visit Provider Internal Medicine
DX: J44.9 Chronic obstructive pulmonary disease, unspecified (principal); F17.210 Nicotine dependence, cigarettes, uncomplicated; R94.2 Abnormal results of pulmonary function studies
CPT/HCPCS: 94060; 94726; 94729

== ENCOUNTER → 2024-08-27 12:07 | Outpatient (CLI) | payer MEDICARE, SELFPAY ==
[2022-02-02 18:41] VITALS: BMI 25.5
--- NOTE | 2024-08-27 12:09 | DI.CT.S_ITS ---
PROCEDURE: CT LUNG LOW DOSE SCREENING INDICATIONS: smoker TECHNIQUE: Noncontrast 2.0-2.5 mm thick sections acquired from the pulmonary apices to the posterior costophrenic angles. 7 mm thick axial MIP, and 5 mm coronal and sagittal reformats were then acquired. For radiation dose reduction, the following was used: automated exposure control, adjustment of mA and/or kV according to patient size. COMPARISON: [facility], CT, CT ANGIO CHEST ABDOMEN PELVIS, 05/16/2022, 9:30. [facility], CT, CT LUNG LOW DOSE SCREENING, 08/11/2023, 13:44. FINDINGS: Image quality: Diagnostic. Lower Neck: No enlarged lymph nodes. Thyroid: No thyroid nodules which require sonographic follow up, per consensus guidelines. Axillae: No enlarged lymph nodes. Chest Wall: Left chest wall generator with cardiac leads. Bones: Unremarkable. Lungs and Pleura: Mild centrilobular emphysema . Trace left pleural effusion. No suspicious pulmonary nodules . 2 mm solid nodule, lingula (series 3, image 143). Heart: Heart size is enlarged, with annular calcification of the mitral valve. No pericardial effusion. Thoracic Vessels: Descending aortic aneurysm with calcified dissection flap, not significantly changed in size or appearance compared with prior. Mediastinum and [place]: No enlarged lymph nodes. Esophagus: No wall thickening. No hiatal hernia. Upper Abdomen: Visualized upper abdomen solid organs and bowel loops appear normal. IMPRESSION: No suspicious pulmonary nodules. LUNG-RADS 2; continued annual screening, if eligible. Clinically Significant Non-pulmonary Findings: None. Descending aortic aneurysm with dissection flap, not significantly changed from prior. Trace left pleural effusion. Dictated by: Hector Deleon M.D. on 08/28/2024 at 12:54 Approved by: Hector Deleon M.D. on 08/28/2024 at 12:59
== END ==
PROVIDERS: PCP Internal Medicine; Referring Provider Internal Medicine; Visit Provider Internal Medicine
DX: J43.2 Centrilobular emphysema (principal); I34.81 Nonrheumatic mitral (valve) annulus calcification; I51.7 Cardiomegaly; F17.210 Nicotine dependence, cigarettes, uncomplicated
CPT/HCPCS: 71271